=== PATIENT | female | born 1975 | race Caucasian/White ===

== ENCOUNTER 2023-06-30 11:30 | Emergency (ER) | payer OTHER ==
[2023-06-30 11:35] VITALS: BP 166/76; PULSE 80; RESP 18; TEMP 97.8; BMI 30.2
[2023-06-30] MEDS ORDERED: ACETAMINOPHEN 500 MG TABLET (FP) PO ONE (12:07)
[2023-06-30] MEDS ORDERED: ACETAMINOPHEN 500 MG TABLET (FP) ONE (12:15)
[2023-06-30] MEDS ORDERED: BACITRACIN ZINC 15 GM TUBE TOPICAL OINTMENT ONE (12:17)
[2023-06-30] MEDS ORDERED: BACITRACIN 0.9 GM PACKET TP ONE (12:17)
== END 2023-06-30 12:33 | disposition home or self-care (01) ==
LOC: JERFT 11:30
DX: S80.811A Abrasion, right lower leg, initial encounter (principal); W01.0XXA Fall on same level from slipping, tripping and stumbling without subsequent striking against object, initial encounter
CPT/HCPCS: 99283-25